=== PATIENT | female | born 1975 | race Caucasian/White ===

== ENCOUNTER 2017-12-30 05:27 | Emergency (ER) | payer BC ==
[2017-12-30 05:40] VITALS: O2SAT 100
[2017-12-30] MEDS ORDERED: Sodium Chloride 0.9% 1,000 ML IV STA (05:58)
--- NOTE | 2017-12-30 06:28 | ED PDOC ---
HPI: Abdomen Time Seen by Provider: 12/30/17 05:35 Chief Complaint (Nursing): Abdominal Pain Chief Complaint (Provider): Abdominal Pain History Per: Patient History/Exam Limitations: no limitations Onset/Duration Of Symptoms: Days (x1) Outside of [place] travel?: No Current Symptoms Are (Timing): Still Present Associated Symptoms: denies: Fever, Vomiting, Diarrhea Additional Complaint(s): 42 year old female presents to ED with complaints of abdominal pain x1 day and has a past medical history of dysmenorrhea and hypothyroidism. Patient notes that the abdominal pain is severe menstrual cramps and is unresolved with ibuprofen. (+) heavy menstrual bleed, (-) vomiting, fever, diarrhea, fever, cough, or SOB. Patient confirms having a similar episode 1 year ago. PCP: [facility]ATEO Abnormal Vaginal Bleeding: Yes Last Menstral Period: current Past Medical History Reviewed: Historical Data, Nursing Documentation, Vital Signs Vital Signs: Last Vital Signs Temp 98 F 12/30/17 11:12 Pulse 80 12/30/17 11:12 Resp 18 12/30/17 11:12 BP 93/57 L 12/30/17 11:12 Pulse Ox 100 12/30/17 11:12 - Medical History PMH: Hypothyroidism Other PMH: Dysmenorrhea - Surgical History Surgical History: No Surg Hx - Family History Family History: States: Unknown Family Hx - Social History Current smoker - smoking cessation education provided: No Ex-Smoker (has not smoked in the last 12 months): No Alcohol: None Drugs: Denies - Home Medications Home Medications: Ambulatory Orders Medication Instructions Recorded Ibuprofen 800 mg PO TID PRN #12 tab 01/18/15 - Allergies Allergies/Adverse Reactions: Allergies Allergy/AdvReac Type Severity Reaction Status Date / Time corea Allergy RASH Verified 12/30/17 05:37 nut - unspecified Allergy RASH Verified 12/30/17 05:37 Sulfa (Sulfonamide Allergy RASH Verified 12/30/17 05:36 Antibiotics) Review of Systems ROS Statement: Except As Marked, All Systems Reviewed And Found Negative Constitutional: Negative for: Fever Respiratory: Negative for: Cough, Shortness of Breath Gastrointestinal: Positive for: Abdominal Pain. Negative for: Vomiting, Diarrhea Genitourinary Female: Positive for: Vaginal Bleeding (heavy menstrual flow) Physical Exam - Reviewed Nursing Documentation Reviewed: Yes Vital Signs Reviewed: Yes - Physical Exam Appears: Positive for: Non-toxic, Uncomfortable Skin: Positive for: Warm, Dry, Pallor. Negative for: Normal Color Cardiovascular/Chest: Positive for: Regular Rate, Rhythm. Negative for: Murmur Respiratory: Positive for: Normal Breath Sounds. Negative for: Respiratory Distress Gastrointestinal/Abdominal: Positive for: Normal Exam, Soft. Negative for: Tenderness, Mass, Guarding, Rebound Back: Positive for: Normal Inspection. Negative for: L CVA Tenderness, R CVA Tenderness Extremity: Positive for: Normal ROM. Negative for: Deformity Neurologic/Psych: Positive for: Alert, Oriented. Negative for: Motor/Sensory Deficits - Laboratory Results Result Diagrams: 12/30/17 06:40 12/30/17 07:30 - ECG O2 Sat by Pulse Oximetry: 100 (RA) Pulse Ox Interpretation: Normal Medical Decision Making Medical Decision Makin Initial impression: dysmenorrhea and heavy menses Initial plan: * ABO/RH TYPE * T&S * Labs * UPreg * UDip * PTT/PT * NS IV * Toradol 30mg IV * UA * US TRANSVAGINAL * Re-eval 0700 Patient will be signed out to Dr. Velez pending labs and US. Scribe Attestation: Documented by Alejandrina Tang acting as a scribe for Jose Sanchez MD. Scribe Attestation: All medical record entries made by the Scribe were at my direction and personally dictated by me. I have reviewed the chart and agree that the record accurately reflects my personal performance of the history, physical exam, medical decision making, and the department course for this patient. I have also personally directed, reviewed, and agree with the discharge instructions and disposition. Disposition - Clinical Impression Clinical Impression: Fibroid (bleeding) (uterine) - Patient ED Disposition Is Patient to be Admitted: Transfer of Care - Disposition Referrals: [facility] [Outside] Disposition: Transfer of Care Disposition Time: 07:00 Condition: FAIR Additional Instructions: Take motrin for pain. Follow up with your PCP in 2-3 days. Instructions: Uterine Fibroids Patient Signed Over To: Bonnie Velez Handoff Comments: pending labs and US.
[2017-12-30 06:59] LABS: BASO # 0.1 K/uL (0.0-0.2); BASO % 0.6 % (0.0-2.0); EOS # 0.1 K/uL (0.0-0.7); EOS % 0.7 % (0.0-4.0); HEMOGLOBIN 13.2 g/dL (12.0-16.0); LYMPH # 1.4 K/uL (1.0-4.3); LYMPH % 8.5 % (20.0-40.0); MEAN CELL VOLUME 89.4 fl (81.0-99.0); MEAN CORPUSCULAR HEMOGLOBIN 29.2 pg (27.0-31.0); MEAN CORPUSCULAR HGB CONC 32.6 g/dL (33.0-37.0); MEAN PLATELET VOLUME 9.8 fl (7.2-11.7); MONO # 0.8 K/uL (0.0-0.8); MONO % 4.7 % (0.0-10.0); NEUT # 14.5 K/uL (1.8-7.0); NEUT % 85.5 % (50.0-75.0); PLATELET COUNT 229 K/uL (130-400); RBC 4.51 Mil/uL (3.80-5.20); RED CELL DISTRIBUTION WIDTH 13.5 % (11.5-14.5)
[2017-12-30 07:08] LABS: SQUAMOUS EPITHIAL < 1 /hpf (0-5); URINE BACTERIA RARE (<OCC); URINE BILIRUBIN NEGATIVE (NEGATIVE); URINE BLOOD MODERATE (NEGATIVE); URINE CLARITY SLIGHTY-CLOUDY (Clear); URINE COLOR YELLOW (YELLOW); URINE GLUCOSE (UA) NEG (Normal); URINE HYALINE CAST 0-2 /hpf (0-2); URINE LEUKOCYTE ESTERASE NEG Leu/uL (Negative); URINE PROTEIN NEGATIVE (NEGATIVE); URINE UROBILINOGEN 0.2-1.0 mg/dL (0.2-1.0)
--- NOTE | 2017-12-30 07:17 | ED PDOC ---
- Laboratory Results Result Diagrams: 12/30/17 06:40 12/30/17 07:30 - ECG O2 Sat by Pulse Oximetry: 100 (RA) Pulse Ox Interpretation: Normal - Progress Re-evaluation Time: 09:00 Condition: Re-examined, Improved Medical Decision Making Medical Decision Making: Time: 0700 Patient is transferred from Dr. Sanchez's care to myself pending abdominal US. Time: 0848 Transvaginal FINDINGS: UTERUS: Measures 6.2 x 4.8 x 4.0 cm. Uterus is normal in size and appears anteverted. There is a 1.5 x 1.5 x 1.3 cm somewhat inhomogeneous poorly marginated hypoechoic structure in the mid fundus cephalad to the endometrium with an adjacent 9 mm simple cysts inferior to it. This may represent a small fibroid. A tiny sub mucus cyst is seen at the mid to lower uterine segment posteriorly measuring 4 mm greatest dimension. ENDOMETRIUM: Measures 8.0 mm in diameter. Unremarkable. CERVIX: No cervical abnormality identified. RIGHT OVARY: Measures 3.0 x 2.9 x 1.3 cm. No solid mass. Normal flow. LEFT OVARY: Measures 2.8 x 1.4 x 3.0 cm. No solid mass. Normal flow. FREE FLUID: No significant free fluid noted. OTHER FINDINGS: None. IMPRESSION: A suspected 1.5 cm high fundal fibroid is suggested with small cystic here degeneration posteriorly. This to be better characterized by MRI if clinically warranted, on on elective basis. Unremarkable bilateral adnexal compartments. Tiny 4 mm submucous cyst mid to low urine segment myometrium. Scribe Attestation: Documented by Naima Arguelles, acting as a scribe for Bonnie Velez MD. Provider Scribe Attestation: All medical record entries made by the Scribe were at my direction and personally dictated by me. I have reviewed the chart and agree that the record accurately reflects my personal performance of the history, physical exam, medical decision making, and the department course for this patient. I have also personally directed, reviewed, and agree with the discharge instructions and disposition. Disposition Counseled Patient/Family Regarding: Studies Performed, Diagnosis, Need For Followup - Clinical Impression Clinical Impression: Fibroid (bleeding) (uterine) - POA Present On Arrival: None - Disposition Referrals: formerly [facility] [Outside] Disposition: Routine/Home Disposition Time: 10:00 Condition: GOOD Additional Instructions: Take motrin for pain. Follow up with your PCP in 2-3 days. Instructions: Uterine Fibroids
[2017-12-30 07:59] LABS: INR 0.9 (0.9-1.2); PARTIAL THROMBOPLASTIN TIME 26.7 Seconds (25.6-37.1); PROTHROMBIN TIME 10.4 Seconds (9.8-13.1)
[2017-12-30 08:03] LABS: ALB/GLOB RATIO 1.3 (1.0-2.1); ALBUMIN 4.1 g/dL (3.5-5.0); ALT/SGPT 34 U/L (9-52); AST/SGOT 36 U/L (14-36); BLOOD UREA NITROGEN 18 mg/dl (7-17); CALCIUM 8.9 mg/dL (8.4-10.2); GFR AFRICAN-AMERICAN > 60; GFR NON-AFRICAN AMERICAN > 60
--- NOTE | 2017-12-30 08:50 | US ---
HISTORY: dysmenorrhea COMPARISON: None available. TECHNIQUE: Transvaginal pelvic ultrasound was performed with longitudinal and transverse projections submitted for interpretation. FINDINGS: UTERUS: Measures 6.2 x 4.8 x 4.0 cm. Uterus is normal in size and appears anteverted. There is a 1.5 x 1.5 x 1.3 cm somewhat inhomogeneous poorly marginated hypoechoic structure in the mid fundus cephalad to the endometrium with an adjacent 9 mm simple cysts inferior to it. This may represent a small fibroid. A tiny sub mucus cyst is seen at the mid to lower uterine segment posteriorly measuring 4 mm greatest dimension. ENDOMETRIUM: Measures 8.0 mm in diameter. Unremarkable. CERVIX: No cervical abnormality identified. RIGHT OVARY: Measures 3.0 x 2.9 x 1.3 cm. No solid mass. Normal flow. LEFT OVARY: Measures 2.8 x 1.4 x 3.0 cm. No solid mass. Normal flow. FREE FLUID: No significant free fluid noted. OTHER FINDINGS: None. IMPRESSION: A suspected 1.5 cm high fundal fibroid is suggested with small cystic here degeneration posteriorly. This to be better characterized by MRI if clinically warranted, on on elective basis. Unremarkable bilateral adnexal compartments. Tiny 4 mm submucous cyst mid to low urine segment myometrium.
[2017-12-30 09:07] LABS: BANDS 2 % (0-2); EOSINOPHIL 1 % (0-7); LYMPHOCYTE 10 % (20-50); MONOCYTE 4 % (0-10); NEUTROPHIL 79 % (42-75); PLATELET ESTIMATE NORMAL (NORMAL); REACTIVE LYMPHOCYTES 4 % (0-0); TOTAL CELLS COUNTED 100
[2017-12-30 09:08] LABS: LARGE PLATELETS PRESENT
[2017-12-30 11:14] VITALS: BP 93/57; PULSE 80; RESP 18; TEMP 98
== END 2017-12-30 11:17 | disposition home or self-care (01) ==
LOC: H.ER 05:27
DX: E03.9 Hypothyroidism, unspecified (principal); Z87.891 Personal history of nicotine dependence; N94.6 Dysmenorrhea, unspecified
CPT/HCPCS: 76830; 80053; 81003; 81025; 85025; 85610; 85730; 86850; 86900; 96360; 99285; J1885; J7040